=== PATIENT | female | born 1970 | race Caucasian/White ===

== ENCOUNTER 2025-01-26 15:50 | Outpatient (AMB) | payer OTHER, SELFPAY ==
--- NOTE | 2025-01-26 15:52 | A.OFFVIS_ITS ---
Intake Visit Reasons: 6m Allergies No Known Allergies Allergy (Verified 01/26/25 15:52) Medication List - Last Reconciled 01/26/25 by Lakeshia Sheriff CNP amitriptyline 25 mg PO BEDTIME cetirizine 10 mg PO DAILY cholecalciferol (vitamin D3) (Vitamin D3) 50 mcg PO DAILY diclofenac sodium 1% 2 grams topical QID fluticasone propionate 50 mcg/actuation 1 - 2 sprays intranasal DAILY PRN hydroxyzine HCl 25 mg PO TID PRN levothyroxine 150 mcg PO DAILY lisinopril 10 mg PO DAILY lisinopril 20 mg PO DAILY meclizine 25 mg PO TID PRN metoclopramide HCl 5 mg PO TID omeprazole 40 mg PO DAILY HPI Comments Details: She was doing okay. Headaches were okay. She stopped amitriptyline over a month ago, no increase in headaches. She recently had eye exam and got new glasses. Bilateral hand numbness was okay, occasionally using wrist splints as needed which helped. Memory was about the same. Sleep was still not so good. She woke a few times during the night and had trouble falling back to sleep. Her PCP apparently ordered sleep study and she was waiting for appointment to be scheduled. She had upcoming appointment with pulmonary. h/o?obstructive sleep apnea, not using CPAP for 2+ years. Gets less than 5 hours of sleep and is up most of the night. Feels that her memory is not as sharp and is forgetful. She also gets some vertigo. She has a long history of migraines. She was doing well for 4-5 months and then she can go 3 months with daily headaches. She has no nausea vomiting. She has frequent sinus problems and sees Dr. Estrada . 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 Her constant dull pressure throughout her scalp has resolved. Gets migraine with periods and with weather change. [facility] Medical History (Updated 01/26/25 @ 15:57 by Lakeshia Sheriff CNP) GERD (gastroesophageal reflux disease) Asthma Hypothyroid Hypertension MERLIN (obstructive sleep apnea) Review of Systems Const Denies chills, Denies daytime sleepiness, Denies difficulty sleeping, Denies fatigue, Denies fever(s), Denies frequent falls, Reports headache(s), Denies increased appetite, Denies poor appetite, Denies snoring, Denies weakness, Denies weight gain and Denies weight loss Eyes Denies loss of vision ENT Denies vertigo, Denies dizziness, Reports headache(s) and Denies neck pain Card Denies chest pain at rest, Denies chest pain with activity, Denies syncope, Denies leg edema, Denies palpitations, Denies dyspnea and Denies dyspnea on exertion Resp Denies cough, Denies dyspnea, Denies dyspnea on exertion and Denies snoring GI Denies abdominal pain, Denies constipation, Denies heartburn, Denies diarrhea and Denies nausea Denies urinary frequency, Denies urinary incontinence and Denies urinary urgency Musc Denies abnormal gait, Denies back pain, Denies myalgias, Denies arthralgias, Denies neck pain, Reports numbness and Reports tingling Neuro Denies abnormal gait, Denies vertigo, Denies dizziness, Denies syncope, Denies frequent falls, Reports headache(s), Denies lack of coordination, Denies loss of vision, Reports memory loss, Reports numbness, Denies Other visual disturbances, Denies restless legs, Denies seizure-like activity, Reports tingling, Denies paresthesias, Denies tremor(s) and Denies weakness Psych Denies anxiety, Denies depression, Denies auditory hallucinations, Reports memory loss and Denies visual hallucinations Endo Denies fatigue and Denies palpitations Physical Exam Const Other: General Appearance:? normal, in no acute distress. Heart:? S1, S2 normal, no murmurs. Lungs:? clear anteriorly and posteriorly. Musculoskeletal:? normal. Extremities:? no edema. Psych:? alert, oriented, cognitive function intact, cooperative with exam. Neuro Other: Abnormal Neurological Findings:?none.? Mental Status: alert and oriented X 3. Normal attention, orientation, memory, and affect. Cranial Nerves: Pupils are equal, round, and reactive to light. External ocular muscles are intact. Visual patiño are full, no ptosis. Face is symmetrical, no facial weakness or droop. Facial sensations are normal. Tongue protrudes in midline. Palate elevates symmetrically. Shoulder shrugging is normal Motor Examination: Normal muscle tone, bulk and strength. No atrophy or fasciculations. No drift of the extended upper extremities. DTR 2+. Plantars are flexor. Sensory Exam: Normal light touch, temperature, pinprick, vibration, and joint- position sensations. Rhomberg sign is absent. Coordination: No ataxia. No titubation. Gait Exam: Within normal limits. Cerebellar Signs: [id number] is okay. Extrapyramidal System: No tremor, rigidity with normal facial expressions. No bradykinesia. No bradyphrenia. Normal arm swing and posture. No propulsion or retropulsion. Speech: Normal. Results Reviewed Results Reviewed: 06/17/24 EEG- WNL 07/28/24 NCV/EMG : Mild CTS on R and early CTS on L. Normal EMG of right C5-T1 inn ervated muscles. Assessment & Plan Assessment & Plan (1) Tension headache: Code(s): G44.209 - Tension-type headache, unspecified, not intractable Category: Medical Plan: She stopped amitriptyline over a month ago without increase in headaches, and medication was discontinued. No significant headaches at this time. Can consider restarting medication in the future if headaches worsen. Recommend following up with PCP regarding sleep study appointment. Follow up in 6 months or sooner as needed. (2) Bilateral carpal tunnel syndrome: Code(s): G56.03 - Carpal tunnel syndrome, bilateral upper limbs Category: Medical Plan: Continue to use wrist splints at night. Coding Level of Care Code Est Pt Level 4 (09606) Diagnoses Tension headache G44.209 Bilateral carpal tunnel syndrome G56.03
== END 2025-01-26 16:10 | disposition home or self-care (01) ==
LOC: HO.HSM 15:51
PROVIDERS: PCP Internal Medicine; Referring Provider Internal Medicine; Visit Provider Registered Nurse
DX: G44.209 Tension-type headache, unspecified, not intractable (principal); G56.03 Carpal tunnel syndrome, bilateral upper limbs
CPT/HCPCS: 99214

== ENCOUNTER → 2025-01-26 15:50 | Outpatient (BNVA) | payer OTHER, SELFPAY | PROVIDERS: PCP Internal Medicine; Referring Provider Internal Medicine; Visit Provider Registered Nurse | DX: G44.209 Tension-type headache, unspecified, not intractable (principal); G56.03 Carpal tunnel syndrome, bilateral upper limbs | CPT/HCPCS: 99212 ==